=== PATIENT | male | born 1940 | race Caucasian/White ===

== ENCOUNTER 2016-08-10 11:16 | Observation (INO) | payer BC ==
--- NOTE | ~2016-08-10 | CR63 ---
[facility] A Service of [facility] & [facility] RADIOLOGY TEXT RESULTS PATIENT: PILAR KELLY LOCATION: [place] [address] : 38 UNIT #: [id number] AGE: [address]: Jason Lamar MD SEX: M ORDER DR: [id number] [facility] [address] [place], [place] [address] [id number] I MR#: [id number] Acc #: [id number] NAME: PILAR KELLY : 1940 SEX: M STUDY DATE/TIME: 08/10/2016 15:29 UNIT: [facility] ROOM: [facility] STUDY DESCRIPTION: CR Chest 2 View Attending Physician: Jason Lamar M.D. Ordering Physician: Jason Lamar M.D. Primary Care Physician: Eugene Boggs M.D. MEDICAL IMAGING REPORT This report is preliminary unless electronic signature is present EXAM PA and lateral chest 08/10/2016 INDICATIONS 75-year-old male with history of swallowing difficulty following endoscopy. COMPARISON STUDIES Comparison with 01/30/2009 FINDINGS There is fibrotic change in the right lung which is worse since 2008. There is no acute-appearing infiltrate. Heart size stable. No evidence of pneumothorax. Tortuous aorta. Degenerative changes thoracic spine. IMPRESSION Chronic scarring and volume loss in the right lung. No acute findings. Dictated by... Vijay Carvalho M.D. THIS IS AN ELECTRONICALLY VERIFIED REPORT Vijay Carvalho M.D. at 08/11/2016 9:03 AM GEM/angie TD: 08/10/2016 17:19 JOB #: [id number] MEDICAL IMAGING REPORT Page 1 of 1 COPY
--- NOTE | ~2016-08-10 | CR97 ---
[facility] A Service of [facility] RADIOLOGY TEXT RESULTS PATIENT: PHILLIP KELLY LOCATION: [place] [address] : 38 UNIT #: [id number] AGE: [address]: Jason Lamar MD SEX: M ORDER DR: [id number] [facility] [address] [place], [place] [address] [id number] I MR#: [id number] Acc #: [id number] NAME: PHILLIP KELLY : 1940 SEX: M STUDY DATE/TIME: 08/10/2016 15:47 UNIT: [facility] ROOM: [facility] STUDY DESCRIPTION: CR Esophagram Attending Physician: Jason Lamar M.D. Ordering Physician: Jason Lamar M.D. Primary Care Physician: Eugene Boggs M.D. MEDICAL IMAGING REPORT This report is preliminary unless electronic signature is present EXAM Esophagram HISTORY Stricture and mass at endoscopy and dilatation. Pain post dilatation, clinical concern for leak. PROCEDURE Limited esophagram performed with Gastrografin. 1.1 minutes of fluoroscopy and 11 spot images. There is a supradiaphragmatic large para esophageal diverticulum and there is a strictured segment immediately below this at the gastroesophageal junction, but there is no evidence of leak and there is ready flow of contrast through the strictured segment. IMPRESSION No evidence of leak. The strictured segment below para esophageal diverticulum. Ready flow of contrast through the stricture. Dictated by... Phillip Frankel M.D. THIS IS AN ELECTRONICALLY VERIFIED REPORT Phillip Frankel M.D. at 08/14/2016 2:34 PM TEV/bhupinder TD: 08/14/2016 10:56 JOB #: [id number] MEDICAL IMAGING REPORT [facility] A Service [facility] RADIOLOGY TEXT RESULTS PATIENT: PHILLIP KELLY LOCATION: [place] [address] : 38 UNIT #: [id number] AGE: [address]: Jason Lamar MD SEX: M ORDER DR: Page 1 of 1 COPY
--- NOTE | ~2016-08-10 | CO ---
Unit #: [id number] #: [id number] Patient: PILAR KELLY [id number] [address] [place], [place] [address] [id number] I MR#: [id number] NAME: PILAR KELLY ROOM: 55 Age: 75 Sex: M Admission Date: 08/10/2016 : 1940 Attending Physician: Jason Lamar M.D. Primary Care Physician: Eugene Boggs M.D. 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 Recently called the office complaining of having more trouble swallowing. He has had multiple dilations in the past. He was referred to [facility] and underwent EGD with balloon dilation yesterday per Dr. Lamar followed by biopsy of suspicious tissue. 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 He was admitted overnight, made NPO. Labs were sent. Gastrografin study was performed post procedure and showed no leak. His medications have been resumed this morning. His diet is being advanced, and he is admitted for further evaluation. Path is currently pending. He has no complaints. He is awake, alert, oriented x3. is at the bedside during the history and physical examination. ALLERGIES Penicillin, doxycycline. MEDICATIONS PRIOR TO ADMISSION 1. Norvasc 10 mg daily. 2. Cozaar 100 mg daily. 3. Synthroid 125 mcg daily. 4. Metaxalone 800 mg daily. 5. Zyrtec 10 mg daily. 6. Pravastatin 40 mg daily. 7. Reclast 5 mg IV yearly. 8. Carafate 1 gram q.a.c. and h.s. 9. Acme 3 fish oil 1,000 mg daily. 10. Colchicine 0.6 mg daily. 11. Folic acid 0.4 mg daily. 12. CoQ10 100 mg daily. 13. Protonix 40 mg daily. 14. Ferrous sulfate 325 mg b.i.d. 15. Benadryl 25 mg b.i.d. p.r.n. PAST MEDICAL HISTORY 1. History of COPD. 2. GE reflux disease. 3. Esophageal strictures. 4. Hypertension. Unit #: [id number] #: [id number] Patient: PILAR KELLY 5. Chronic kidney disease, stage 3. 6. Osteoporosis. 7. Hypothyroidism. 8. Hyperlipidemia. 9. Colonic polyps. 10. Amadou's granulomatosis. 11. Gout. 12. Non-small cell cancer of the right lung status post right lower lobectomy in 1996. PAST SURGICAL HISTORY 1. Right lower lobectomy. 2. Left total hip replacement for avascular necrosis. SOCIAL HISTORY Prior smoker, rare alcohol use, no street drug use. PHYSICAL EXAMINATION GENERAL: He is awake, alert, oriented x3, and in no acute distress. VITAL SIGNS: Afebrile, pulse 107, respirations 18, blood pressure 123/72, O2 sat 98% on room air. HEENT: Unremarkable. NECK: Neck was supple without JVD, bruits, adenopathy or thyromegaly. CHEST: Diffusely decreased breath sounds but clear to auscultation. CARDIOVASCULAR: Heart has a regular rate and rhythm without any murmurs, rubs or gallops. ABDOMEN: Abdomen was soft, nondistended, nontender with positive bowel sounds and no hepatosplenomegaly. EXTREMITIES: Extremities showed no clubbing, cyanosis or edema. /RECTAL: Deferred. NEUROLOGIC: Exam is grossly intact. DIAGNOSTIC STUDIES IMAGING: Again, esophagram showed no leak and was noted, again, to have a large epiphrenic diverticulum. Chest x-ray - Right lower lobe scarring and volume loss consistent with prior surgery. LAB VALUES: CMP normal except for a sodium of 131, a CO2 of 21, GFR of 48. Phosphorous, mag, prealbumin normal. White count 8.5, hemoglobin 10.5, platelets 137,000. IMPRESSION 1. Status post esophageal balloon dilation. 2. Esophageal stricture. 3. Esophageal diverticulum. 4. Esophageal polypoid mass status post biopsy. 5. GE reflux disease. 6. COPD. 7. Chronic kidney disease, stage 3. 8. Hyponatremia. 9. Anemia. 10. Thrombocytopenia. 11. Osteoporosis. 12. Hypertension. 13. Hypothyroidism. 14. Hyperlipidemia. Unit #: [id number] #: [id number] Patient: PILAR KELLY 15. History of colonic polyps. 16. History of non-small cell cancer of the lung status post right lower lobectomy. 17. History of Amadou's granulomatosis. 18. Gout. 19. 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 PLAN Advance diet. Resume home meds. Await pathology. Thank you for the consultation. Dictated by... Eugene Boggs M.D. BIJAL/dalia TD: 08/11/2016 07:51 JOB #: [id number] CONSULTATION REPORT Page 1 of 1 X Eugene Boggs MD X CONSULTATION REPORT
--- NOTE | ~2016-08-10 | OR ---
Unit #: [id number] #: [id number] Patient: PILAR KELLY [id number] [facility] [address] [place], [place] [address] [id number] Ramona MR#: [id number] NAME: PILAR KELLY ROOM: 55 Date of Procedure: 08/10/2016 Admission Date: 08/10/2016 Surgeon: Jason Lamar M.D. : 1940 Attending Physician: Jason Lamar M.D. Primary Care Physician: Eugene Boggs M.D. OPERATIVE REPORT PREOPERATIVE DIAGNOSIS Dysphagia. POSTOPERATIVE DIAGNOSES 1. Stricture at the gastroesophageal junction. 2. Polypoid mucosal changes worrisome for malignancy. 3. Epiphrenic diverticulum. 4. Hiatal hernia. PROCEDURES PERFORMED Esophagogastroduodenoscopy with foreign body removal from the distal esophagus and diverticulum with balloon dilatation of the stricture and biopsy of suspicious tissue for pathology ANESTHESIA Monitored anesthesia. INDICATIONS FOR PROCEDURE A 75-year-old gentleman, came to my office yesterday stating he has been having dysphagia and unable to swallow adequately for approximately a month. He has a previous history of what was described as a benign esophageal stricture, but there was a questionable family history of esophageal cancer. The patient also admitted to weight loss, but denies any hematemesis or melena. The patient was added on to today's schedule because of the severity of his dysphagia for evaluation and possible dilatation. DESCRIPTION OF PROCEDURE The patient was admitted to [facility], positively identified, transported to the endoscopy suite. After appropriate monitoring and positioning, a bite block was placed and he was sedated. The endoscope was passed through the oral cavity into the esophagus. Under direct vision, I passed through the esophagus and it would until I reached the distal esophagus, there was a large amount of retained food stuffs, mostly solid, but some liquid. All of the foreign body was removed by using a grasping device and bring it out through the oral cavity. Once I had cleared all of the foreign body, we irrigated and suctioned out the remaining mucus. The patient had a very large epiphrenic diverticulum with a very nodular mucosa. On the gastroesophageal junction side, he had a stricture and there was a lot of polypoid material worrisome for possible malignancy. I was able to visualize this and gently passed the scope through the stricture into the Unit #: [id number] #: [id number] Patient: PILAR KELLY stomach. He had a small hiatal hernia associated with the GE junction. The stomach was insufflated. I easily passed through the stomach into the duodenum. Duodenum, duodenal bulb, antrum, upper fundus, and cardia were normal. It was only right at the GE junction that there was a stricture and saw only the polypoid abnormal tissue on the esophageal side of the GE junction. I passed a balloon dilator through the scope in the lumen of stomach, pulled the endoscope and the balloon back across the stricture and dilated to 15 mm leaded down, there was only a small amount of mucosal bleeding. I then dilated up to 16.5 mm. With this, there was significant oozing from the mucosa, so no further dilatation was performed. Again, biopsies on the esophageal side from the suspicious looking tissue were taken. I irrigated copiously. There was oozing, but no arterial bleeding. We suctioned all the irrigant and the fluid out of the esophagus and epiphrenic diverticulum. As I brought the scope back in a retrograde fashion, the rest the esophagus and larynx looked normal. The patient tolerated the procedure well and transported to recovery in stable condition. He will be kept in an upright position. I am going to admit him to the hospital, get a Gastrografin swallow on a PA and lateral chest x-ray and await his biopsy results. Findings will be discussed with the lady, who accompanied him at his request. Dictated by... Praful Estrada/casey TD: 08/11/2016 05:36 JOB #: [id number] OPERATIVE REPORT Page 1 of 1 X Jason Lamar MD PROCEDURE OPERATIVE NOTE
[~2016-08-10 11:16] MED LIST: BENADRYL PO; BENADRYL25 M3 PO; CARAFATE1 G PO; CLARINEX5 MG PO; CO Q 10 PO; CO Q10100 MG PO; COLCRYS0.6 M2 PO; COZAAR PO; FERROUS SULFATE PO; FISH OIL 1,0001 CAP PO; FOLIC ACID PO; HCTZ PO; METAXALONE800 MG PO; MUCINEX DM1 TAB.SR . PO; NORVASC; NORVASC PO; OMEGA 3; OMEGA-3100 MG PO; PRAVASTATIN SOD40 MG PO; PREVACID PO; PROTONIX PO; RECLAST 55 MG/100 M IV; SKELAXIN PO; SYNTHROID PO; VITAMIN B12-FO1 EACH PO; VITAMIN D; VITAMIN D 4001 UDTAB PO; VITAMIN D1000 UNI2 PO; ZOCOR PO; ZYRTEC10 M2 PO
[2016-08-10 15:16] LABS: BASOPHIL# 0.1 X10e3 (0-0.3); BASOPHIL% 0.7 % (0-2.5); EOSINOPHIL# 0.5 X10e3 (0-0.7); HEMATOCRIT 32.5 % (38.0-50.0); HEMOGLOBIN 10.5 gm/dL (13.0-16.0); LYMPHOCYTE# 1.8 X10e3 (1.0-3.5); LYMPHOCYTE% 21.5 % (17.0-45.0); MEAN CELL VOLUME 89.5 FL (83-96); MEAN CORPUSCULAR HEMOGLOBIN 28.9 PG (28-34); MEAN CORPUSCULAR HGB CONC 32.3 g/dL (30-36); MONOCYTE# 0.8 X10e3 (0-1.0); MONOCYTE% 9.8 % (3.0-12.0); NEUTROPHIL# 5.2 X10e3 (1.5-7.1); PLATELET COUNT 137 X10e3 (140-420); RED BLOOD COUNT 3.64 X10e (3.90-5.60); RED CELL DISTRIBUTION WIDTH 13.9 % (11.0-15.5); WHITE BLOOD COUNT 8.5 X10e3 (4.0-10.5)
[2016-08-10 15:20] LABS: DIFF IND NO
[2016-08-10 15:44] LABS: ALBUMIN SERUM 3.5 g/dL (3.5-5.0); BILIRUBIN,TOTAL 0.5 mg/dL (0.2-2.0); BUN/CREATININE RATIO 12.85; CALCIUM SERUM 8.9 mg/dL (8.4-10.2); CREATININE SERUM 1.4 mg/dL (0.6-1.4); GLOM FILT RATE Estimated 48.1 mL/min (>60); MAGNESIUM 1.8 mg/dL (1.6-3.0); POTASSIUM 3.7 mmol/L (3.5-5.1); PREALBUMIN 23.5 mg/dL (17.0-42.0); PROTEIN TOTAL SERUM 7.9 g/dL (6.0-8.3)
== END 2016-08-12 10:32 | disposition home or self-care (01) | DRG 392 ==
LOC: COPS 11:16 → CPACUOF 14:05 → C5B 16:25
PROVIDERS: Specialist
DX: K22.2 Esophageal obstruction (principal); K22.10 Ulcer of esophagus without bleeding; K21.0 Gastro-esophageal reflux disease with esophagitis; K22.5 Diverticulum of esophagus, acquired; T18.128A Food in esophagus causing other injury, initial encounter; K44.9 Diaphragmatic hernia without obstruction or gangrene; Z85.118 Personal history of other malignant neoplasm of bronchus and lung; Z90.2 Acquired absence of lung [part of]; J44.9 Chronic obstructive pulmonary disease, unspecified; E87.1 Hypo-osmolality and hyponatremia; D64.9 Anemia, unspecified; D69.6 Thrombocytopenia, unspecified; M81.0 Age-related osteoporosis without current pathological fracture; I12.9 Hypertensive chronic kidney disease with stage 1 through stage 4 chronic kidney disease, or unspecified chronic kidney disease; N18.3 Chronic kidney disease, stage 3 (moderate); E03.9 Hypothyroidism, unspecified; E78.5 Hyperlipidemia, unspecified; Z88.0 Allergy status to penicillin; Z88.1 Allergy status to other antibiotic agents; Z87.891 Personal history of nicotine dependence; M10.9 Gout, unspecified; Z86.010 Personal history of colon polyps; Z96.642 Presence of left artificial hip joint
CPT/HCPCS: 71020; 74220; 80053; 82947; 83735; 84100; 84134; 85025; 88305; 88312; 96374; 96375; 96376; C9113; G0378; J3490

== ENCOUNTER → 2016-09-12 | Day surgery (SDC) | payer OTHER ==
--- NOTE | ~2016-09-12 | OR ---
Unit #: [id number] #: [id number] Patient: PILAR KELLY [id number] [address] [address] [id number] O MR#: [id number] NAME: PILAR KELLY ROOM: Date of Procedure: 09/12/2016 Admission Date: 09/12/2016 Surgeon: Jason Lamar M.D. : 1940 Attending Physician: Jason Lamar M.D. Primary Care Physician: Eugene Boggs M.D. OPERATIVE REPORT PRIMARY CARE PHYSICIAN Dr. Eugene Boggs. PREOPERATIVE DIAGNOSES Mild dysphagia with a history of chronic recurrent esophageal stricture and epiphrenic diverticulum of the esophagus. POSTOPERATIVE DIAGNOSES Mild dysphagia with a history of chronic recurrent esophageal stricture and epiphrenic diverticulum of the esophagus. PROCEDURES PERFORMED Esophagogastroduodenoscopy to third portion of the duodenum with balloon dilatation of the esophageal stricture, biopsy of the epiphrenic diverticulum mucosa because of a history of atypia on previous biopsy. ANESTHESIA Monitored anesthesia. INDICATIONS FOR PROCEDURE A 75-year-old gentleman, who has had a long history of chronic recurrent esophageal strictures and food impactions due to distal esophageal stricture and a large epiphrenic diverticulum. The patient most recently presented with an acute meat impaction that had to be removed and at that time due to the amount of inflammation and exudate, biopsies from the mucosa of the diverticulum were taken to rule out malignancy. It did show atypia, but they felt that was probably reactive atypia. He does have a family history of esophageal carcinoma however and so, biopsies were indicated. Since that recent food impaction requiring urgent EGD, the patient states he has been doing pretty well with only minimal dysphagia. DESCRIPTION OF PROCEDURE The patient was admitted to [facility], positively identified, and transported to the endoscopy unit. After appropriate monitoring and positioning, he was sedated by the nurse rv detailer. Bite block had been placed. An endoscope was passed through the oral cavity into the esophagus. Under direct vision, I passed through the esophagus and at the GE junction, the diverticulum as well as the esophageal gastric junction were visualized, although there was a little bit of resistance. I was able to pass the scope through the GE junction in the stomach. The stomach and duodenum were otherwise normal. As we came back in a retrograde fashion. I passed a balloon dilator and we sequentially Unit #: [id number] #: [id number] Patient: PILAR KELLY dilated the stricture from 15 to 16 to 18 mm. At that time, we had a breakage in the cicatrix with some bleeding. The epiphrenic diverticulum had a small amount of retained food stuffs, but very small compared to previous evaluation. The mucosa was not erythematous, but it was thick walled and so biopsies x4 were taken to rule out an associated malignancy. Around the GE junction; however, I did not see any ulceration or mass. In retrograde visualization, the rest of the esophagus was normal. At this time, the patient tolerated the procedure well and transported to recovery in stable condition. He will be able to go home today, but he has been instructed to stay on a liquid diet for 24 hours. After that, he can go back to his regular diet. We will await the biopsies to see if there is any findings of concern and discussed the findings with the patient. He was also instructed that any time he starts to have the sensation of sticking of food or medications that he should come back in for re-dilatation. The patient has been told on several occasions in the past by previous physician taking care of this problem that he was not an operative candidate. I would need to investigate to see why it was not an operative candidate. However, resection of this would require probably at the minimum and [place] [facility] Esophagectomy and I am not sure the patient wants to proceed with that. Dictated by... Praful Estrada/casey TD: 09/12/2016 23:47 JOB #: [id number] OPERATIVE REPORT Page 1 of 1 X Jason Lamar MD PROCEDURE OPERATIVE NOTE
== END | disposition home or self-care (01) ==
LOC: COPS 10:15
DX: K22.2 Esophageal obstruction (principal); K22.5 Diverticulum of esophagus, acquired; K21.0 Gastro-esophageal reflux disease with esophagitis; R13.10 Dysphagia, unspecified; J44.9 Chronic obstructive pulmonary disease, unspecified; E03.9 Hypothyroidism, unspecified; Z88.0 Allergy status to penicillin; Z88.1 Allergy status to other antibiotic agents
CPT/HCPCS: 82947; 88305; 88312

== ENCOUNTER → 2016-11-01 | Outpatient (CLI) | payer OTHER ==
--- NOTE | ~2016-11-01 | CT57 ---
[facility] A Service of [facility] & [facility] RADIOLOGY TEXT RESULTS PATIENT: PILAR KELLY LOCATION: [facility] : 38 UNIT #: [id number] AGE: [address]: Eugene Boggs MD SEX: M ORDER DR: [id number] [facility] [address] [place], [place] [address] [id number] O MR#: [id number] [facility] #: [id number] NAME: PILAR KELLY : 1940 SEX: M STUDY DATE/TIME: 11/01/2016 15:16 UNIT: [facility] ROOM: STUDY DESCRIPTION: CT Chest Wo Cont Attending Physician: Eugene Boggs M.D. Referring Physician: Eugene Boggs M.D. Ordering Physician: Eugene Boggs M.D. Primary Care Physician: Eugene Boggs M.D. MEDICAL IMAGING REPORT This report is preliminary unless electronic signature is present EXAM CT of the chest without contrast INDICATIONS Lung cancer. This exam was requested for surveillance for metastatic disease. Patient has had a right lower lobectomy. He reports congestion for [address] images were obtained from thoracic inlet through the dome of the diaphragm. No intravenous contrast material was administered. This CT exam was performed with one or more of the following radiation dose reduction techniques: automatic exposure control, adjustment of mA and/or kV according to patient size, and iterative reconstruction. FINDINGS Patient is noted to have postsurgical changes of right lower lobectomy with associated volume loss within the right hemithorax. In comparison to the prior study there does appear to be an area of increasing consolidation at the right lung base. This area measures up to 5.6 x 2.7 cm and is indeterminate in the setting of a patient with a prior history of malignancy. It may simply reflect some progressive scarring. However I would suggest further evaluation with PET given history. Patient is also noted to have areas of consolidation throughout the rest of the right hemithorax, however this appearance is stable when compared to June 2015 and is again favored to represent chronic scarring. At the left lung base there is a nodule measuring about a centimeter in size which is unchanged and again is favored to represent some scarring. No new nodules are seen on the left. Thyroid gland is somewhat atrophic. This patient has a moderate hiatal hernia. A precarinal node is slightly larger than on the prior study now measuring about 1.7 x 1.2 cm previously 1.6 x 0.9 cm. Images through the upper abdomen do demonstrate some aneurysmal STS. [facility] A Service of [facility] RADIOLOGY TEXT RESULTS PATIENT: PILAR KELLY LOCATION: [facility] : 38 UNIT #: [id number] AGE: [address]: Eugene Boggs MD SEX: M ORDER DR: dilatation of the infrarenal abdominal aorta measuring at least 2.8 x 2.7 cm. There are coronary artery calcifications. No pleural effusion is identified. This patient has multiple compression fractures of the thoracic spine. The appearance is stable when compared to June 2015. IMPRESSION 1. When compared to prior study this patient has developed increasing consolidation at the right lung base with an area of consolidation seen near the inferior right hilum measuring up to 5.6 x 2.7 cm and actually a second area of consolidation measuring up to 3.9 x 1.9 cm at the extreme right lung base. While this could reflect progressive fibrosis the possibility of recurrent disease is not excluded in this patient with history of lung cancer. Further evaluation with PET is recommended. Some additional areas of consolidation is seen within the right upper lobe superiorly I think are probably not significantly changed when compared to the June examination. There is also a nodule within the left lower lobe which has been unchanged since June 2015 and is also favored to be benign. Patient does have a prominent lower right paratracheal node which appears larger on today's exam than on prior studies. Again significance is uncertain but attention to it on the PET is recommended. 2. Moderate hiatal hernia. 3. No pleural effusion is seen on either side. 4. Aneurysmal dilatation of the infrarenal abdominal aorta measuring at least 2.8 x 2.7 cm. Please see the body of the report for any other additional incidental findings. Dictated by... Karis Duval M.D. THIS IS AN ELECTRONICALLY VERIFIED REPORT Karis Duval M.D. at 11/02/2016 4:45 PM PALMA/angie TD: 11/01/2016 18:29 JOB #: [id number] MEDICAL IMAGING REPORT Page 1 of 1 COPY
== END | disposition home or self-care (01) ==
LOC: CCAT 14:26
DX: J90 Pleural effusion, not elsewhere classified (principal); J18.1 Lobar pneumonia, unspecified organism; K44.9 Diaphragmatic hernia without obstruction or gangrene; I71.4 Abdominal aortic aneurysm, without rupture
CPT/HCPCS: 71250